=== PATIENT | male | born 1935 | race Caucasian/White ===

== ENCOUNTER 2023-02-22 16:19 | Emergency (ER) | payer OTHER ==
[~2023-02-22] VITALS: Ht 170.2 cm; Wt 86.2 kg
[2023-02-22 16:47] VITALS: BP_SYST 138
--- NOTE | 2023-02-22 18:08 | NUR ---
BROUGHT BACK TO BED #6 VIA WHEELCHAIR AND PLACED IN BED WITH ASSISTANCE OF STAFF.
--- NOTE | 2023-02-22 18:10 | NUR ---
PT BIB DAUGHT AWAKE AND ALERT AOX3, NO SOB OR DISTRESS. PT C/O OF GENERALIZED WEAKNESS. PT HAS SKIN TEAR TO RIGHT HAND DUE TO FALL AT HOME. PT DENIES PAIN, AND N/V.
--- NOTE | 2023-02-22 18:11 | NUR ---
MD DR FABIAN AT BEDSIDE
[2023-02-22] MEDS ORDERED: BACITRACIN ZINC 15 GM TOPICAL OINTMENT TP SCH (18:45)
[2023-02-22 19:21] LABS: BASOPHILS # (AUTO) 0.1 K/uL (0.0-0.2); BASOPHILS % (AUTO) 0.8 % (0.0-2.0); EOSINOPHILS # (AUTO) 0.5 K/uL (0.0-0.4); EOSINOPHILS % (AUTO) 5.5 % (0.0-4.0); HEMATOCRIT 34.7 % (36-54); HEMOGLOBIN 11.5 g/dL (14.0-18.0); LYMPHOCYTES # (AUTO) 0.9 K/uL (1.0-5.5); LYMPHOCYTES % (AUTO) 9.3 % (20.5-51.5); MEAN CORPUSCULAR HEMOGLOBIN 27 pg (27-31); MEAN CORPUSCULAR HGB CONC 33 % (32-36); MEAN CORPUSCULAR VOLUME 80 fL (79.0-98.0); MONOCYTES # (AUTO) 0.6 K/uL (0.0-1.0); MONOCYTES % (AUTO) 6.2 % (1.7-9.3); NEUTROPHILS # (AUTO) 7.6 K/uL (1.8-7.7); NEUTROPHILS % (AUTO) 78.2 % (40.0-70.0); PLATELET COUNT (AUTO) 288 K/uL (130-430); RED BLOOD CELL COUNT(AUTO) 4.34 MIL/uL (4.2-6.2); RED CELL DISTRIBUTION WIDTH 14.2 % (9.0-15.0); WHITE BLOOD COUNT (AUTO) 9.7 K/uL (4.8-10.8)
[2023-02-22 19:24] LABS: BILIRUBIN,URINE NEGATIVE (NEGATIVE); CLARITY/URINE CLEAR (CLEAR); COLOR,URINE YELLOW (YELLOW); GLUCOSE,URINE NEGATIVE (NEGATIVE); KETONES,URINE TRACE (NEGATIVE); LEUKOCYTE ESTERASE ,URINE NEGATIVE (NEGATIVE); NITRITE, URINE NEGATIVE (NEGATIVE); PROTEIN URINE NEGATIVE (NEGATIVE); UROBILINOGEN,URINE 0.2 (0.2-1.0)
[2023-02-22 19:25] LABS: ANION GAP 5 (5-15); CALCIUM 9.1 mg/dL (8.4-11.0); CHLORIDE 103 mmol/L (98-107); CREATININE 1.38 mg/dL (0.55-1.30); GLUCOSE 111 mg/dL (70-99); UREA NITROGEN, BLOOD 24 mg/dL (8-21)
[2023-02-22 19:26] LABS: PROTHROMBIN TIME 10.7 SECS (9.5-12.5)
[2023-02-22 19:32] LABS: ALANINE AMINOTRANSFERASE 18 U/L (12-78); ALBUMIN 2.9 g/dL (3.4-4.8); ASPARTATE AMINOTRANSFERASE 26 U/L (10-37); TOTAL BILIRUBIN 0.4 mg/dL (0.0-1.0)
[2023-02-22 19:34] LABS: BLOOD, URINE TRACE (NEGATIVE)
[2023-02-22 19:35] LABS: BACTERIA,URINE None Seen /HPF (None Seen); MUCUS,URINE None Seen /LPF (None Seen); RBC,URINE 0-3 /HPF (0-3); WBC,URINE 0-3 /HPF (0-3)
[2023-02-22] MEDS ORDERED: PSEU30TA36 PO (20:50)
[2023-02-22] MEDS ORDERED: GUAI1TBM19 PO (20:50)
[2023-02-22] MEDS ORDERED: BACITRACIN 1 GM OINT TP ONE ×2 (21:01→21:45)
--- NOTE | 2023-02-22 21:26 | NUR ---
WOUND CARE: SKIN TEAR TO LEFT ELBOW & LEFT HAND, CLEANED, BACITRACIN, NON-ADHESIVE PRESSURE DRESSING APPLIED. FAMILY MEMBERS AT BEDSIDE. EXPLAINED FOLLOW UP WOUND CARE AT HOME.
[2023-02-22 21:59] VITALS: BP_SYST 128
--- NOTE | 2023-02-22 21:59 | NUR ---
Patient given written and verbal discharge instructions and verbalizes understanding. ER MD discussed with patient the results and treatment provided. Patient in stable condition. ID arm band removed. IV catheter removed intact and dressing applied, no active bleeding. Rx of SUDAFED AND MUCINEX given. Patient educated on pain management and to follow up with PMD. Pain Scale 0/10 Opportunity for questions provided and answered. Medication side effect fact sheet provided.
== END 2023-02-22 21:59 | disposition home or self-care (01) ==
LOC: SED 16:19
DX: J06.9 Acute upper respiratory infection, unspecified (principal); R05.9 Cough, unspecified; R55 Syncope and collapse; I44.7 Left bundle-branch block, unspecified; E11.9 Type 2 diabetes mellitus without complications; I10 Essential (primary) hypertension; Z79.899 Other long term (current) drug therapy; Z20.822 Contact with and (suspected) exposure to COVID-19
CPT/HCPCS: 36415; 71045; 80053; 81000; 83605; 83880; 84484; 85025; 85610-TC; 85730-TC; 87040; 93005; 99285